=== PATIENT | female | born 1940 | race Caucasian/White ===

== ENCOUNTER 2017-02-06 09:42 | Emergency (ER) | payer MEDICARE, OTHER ==
--- NOTE | 2017-02-06 11:15 | ED Physician Documentation ---
History of Present Illness - Stated complaint Stated Complaint: LEG PX - Chief complaint Chief Complaint: Ext Problem - History obtained from History obtained from: Patient - History of Present Illness Timing: Other (Last weekend) Review of Systems Constitutional: denies: Fever Cardiac: denies: Chest pain / pressure, Palpitations, Pedal edema, Calf pain Respiratory: denies: Dyspnea, Cough, Wheezing GI: denies: Abdominal Pain, Nausea, Vomiting : denies: Dysuria, Frequency Skin: denies: Rash Musculoskeletal: reports: Joint pain (Posterior left ankle) Neurologic: denies: Focal weakness, Numbness PD PAST MEDICAL HISTORY - Past Medical History Past Medical History: Yes Cardiovascular: Hypertension, High cholesterol - Allergies Allergies/Adverse Reactions: Allergies Allergy/AdvReac Type Severity Reaction Status Date / Time No Known Drug Allergies Allergy Verified 02/06/17 09:52 - Social History Does the pt smoke?: No Smoking Status: Never smoker PD ED PE NORMAL - General General: Alert and oriented X 3 - HEENT HEENT: Moist mucous membranes - Cardiac Cardiac: RRR, No murmur - Respiratory Respiratory: No respiratory distress - Back Back: No CVA TTP - Derm Derm: Normal color, Warm and dry - Extremities Extremities: No deformity, No edema, No calf tenderness / cord. No: No tenderness to palpate (+ TTP left posterior ankle ) - Neuro Neuro: Alert and oriented X 3 Eye Opening: Spontaneous Motor: Obeys Commands Verbal: Oriented GCS Score: 15 PD ED PE EXPANDED - Extremities Extremities: Normal. No: Deformity, Limited ROM, Swelling, Red warm joint Results - Vitals Vitals: Vital Signs - 24 hr 02/06/17 09:52 Temperature 36.2 C L Heart Rate 71 Respiratory 16 Rate Blood Pressure 141/83 H O2 Saturation 100 Oxygen O2 Source Room air PD MEDICAL DECISION MAKING - ED course ED course: Pt with posterior ankle pain. No proximal fibula tenderness. Doubt fracture or septic joint. Will provide ROLANDA bandage. Gave RICE instructions. Departure - Departure Disposition: 01 Home, Self Care Clinical Impression: Tendonitis of ankle Condition: Good
[2017-02-06 11:21] VITALS: BP 154/91
== END 2017-02-06 11:24 | disposition home or self-care (01) ==
LOC: ED 09:42
DX: M77.9 Enthesopathy, unspecified (principal); I10 Essential (primary) hypertension; E78.00 Pure hypercholesterolemia, unspecified
CPT/HCPCS: 99282; 99283

== ENCOUNTER 2021-02-07 14:23 | Outpatient (CLI) | payer MEDICARE, OTHER ==
--- NOTE | 2021-02-07 16:12 | XRAY Report ---
PROCEDURE: Cervical Spine Complete INDICATIONS: NECK PAIN TECHNIQUE: 5 view(s) of the cervical spine were acquired. COMPARISON: None. FINDINGS: No definite acute fracture although suboptimal evaluation secondary to discogenic changes and diffuse osteopenia. Postsurgical effects related to osseous spinal fixation from the level of C3-T1. There i s also ACDF seen at the level of C7-T1. Hardware appears grossly intact. There is anterolisthesis of C2 on C3 measuring 2 mm on the flexion view which appears to reduce on extension view, in keeping wit h abnormal motion. Diffuse cervical spondylosis and facet disease. IMPRESSION: Findings suggest abnormal motion at C2-C3 as detailed above. This raises the possibility of instabili ty. Reviewed by: Rashaad Wilson MD on 02/07/2021 4:11 PM PST Approved by: Rashaad Wilson MD on 02/07/2021 4:11 PM PST Station ID: [id number]
== END 2021-02-07 14:24 | disposition home or self-care (01) ==
LOC: DI 14:23
DX: M47.812 Spondylosis without myelopathy or radiculopathy, cervical region (principal); M43.12 Spondylolisthesis, cervical region

== ENCOUNTER 2021-03-08 15:37 | Outpatient (CLI) | payer MEDICARE, OTHER ==
--- NOTE | 2021-03-08 17:26 | XRAY Report ---
PROCEDURE: Cervical Spine Complete INDICATIONS: CERVICAL VERTEBRAL FUSION TECHNIQUE: 5 view(s) of the cervical spine were acquired. COMPARISON: 02/07/2021.. FINDINGS: Bones: Postsurgical changes compatible with C3-T1 posterior fusion and C7-T1 ACDF as well as C4-C7 l aminectomies.. Orthopedic hardware is in expected position. Orthopedic hardware is intact. No fractur es or dislocations to the T1 level. The lateral masses of C1 appear intact on the odontoid view. No suspicious bony lesions. Severe degenerative disc changes noted from C3 through T1. There is severe ly limited range of motion in both the flexed and extended positions. There is trace, approximately 2 mm of C2 over C3 anterolisthesis and the flexed position which reduces to normal alignment in the ex tended position.. Soft tissues: No prevertebral soft tissue swelling. IMPRESSION: 1. Stable postsurgical changes. 2. Stable 2 mm C2-C3 anterolisthesis with cervical spine flexion. Reviewed by: Jen Thomas MD, PhD on 03/08/2021 5:24 PM PST Approved by: Jen Thomas MD, PhD on 03/08/2021 5:24 PM PST Station ID: [id number]
== END 2021-03-08 15:38 | disposition home or self-care (01) ==
LOC: DI 15:37
PROVIDERS: ATTEND Orthopaedic Surgery Orthopaedic Surgery of the Spine
DX: M43.22 Fusion of spine, cervical region (principal)

== ENCOUNTER 2021-03-14 12:52 | Outpatient (CLI) | payer MEDICARE, OTHER ==
--- NOTE | 2021-03-14 15:25 | XRAY Report ---
PROCEDURE: Lumbar Spine Complete INDICATIONS: BACK PAIN, LUMBOSACRAL TECHNIQUE: 5 views of the lumbar spine were acquired. COMPARISON: None. FINDINGS: Bones: 5 [id number] vertebrae are present. There is loss of normal lumbar lordosis. Multilevel disc space narrowing and endplate osteophyte formation. Facet hypertrophy throughout the lumbar spin e. Mild grade 1 retrolisthesis of L1 on L2 and L2 on L3. Mild chronic appearing wedging of L2. No helena tebral body compression fractures. No suspicious bony lesions. Soft tissues: Overlying bowel gas pattern is normal. No suspicious soft tissue calcifications. IMPRESSION: 1. Multilevel degenerative disc and facet disease. 2. No acute fracture. No osseous lesion. If symptoms and/or clinical suspicion for pathology continue , further assessment with repeat plain films, or advanced imaging (e.g., CT, MRI, or bone scan) is re commended for further assessment. Reviewed by: Merlyn Boyd MD on 03/14/2021 3:23 PM PST Approved by: Merlyn Boyd MD on 03/14/2021 3:23 PM PST Station ID: [id number]
== END 2021-03-14 12:53 | disposition home or self-care (01) ==
LOC: DI 12:52
PROVIDERS: ATTEND Orthopaedic Surgery Orthopaedic Surgery of the Spine
DX: M47.816 Spondylosis without myelopathy or radiculopathy, lumbar region (principal); M43.16 Spondylolisthesis, lumbar region; M51.36 Other intervertebral disc degeneration, lumbar region

== ENCOUNTER 2021-03-29 08:00 | Outpatient (CLI) | payer MEDICARE, OTHER ==
[2021-03-29 18:40] LABS: BASOPHILS % (AUTO) 0.7 %; EOSINOPHILS # (AUTO) 0.1 10^3/uL (0.0-0.7); EOSINOPHILS % (AUTO) 2.4 %; HCT - HEMATOCRIT 46.8 % (37.0-47.0); LYMPHOCYTES # (AUTO) 2.2 10^3/uL (1.5-3.5); LYMPHOCYTES % (AUTO) 36.6 %; MEAN CORPUSCULAR HEMOGLOBIN 29.6 pg (27.0-31.0); MEAN CORPUSCULAR HGB CONC 34.2 g/dL (32.0-36.0); MEAN CORPUSCULAR VOLUME 86.5 fL (81.0-99.0); MEAN PLATELET VOLUME 11.1 fL (7.9-10.8); MONOCYTES # (AUTO) 0.6 10^3/uL (0.0-1.0); MONOCYTES % (AUTO) 9.4 %; NEUTROPHILS % (AUTO) 50.7 %; PLT - PLATELET COUNT 210 10^3/uL (130-450); RED BLOOD COUNT 5.41 10^6/uL (4.20-5.40); RED CELL DISTRIBUTION WIDTH 12.5 % (12.0-15.0); WHITE BLOOD COUNT 5.9 x10^3/uL (4.8-10.8)
[2021-03-29 19:03] LABS: ALBUMIN 4.3 g/dL (3.2-5.5); ALBUMIN/GLOBULIN RATIO 1.5 (1.0-2.2); ALKALINE PHOSPHATASE 87 IU/L (42-121); ALT ALANINE AMINOTRANSFERASE 31 IU/L (10-60); AST ASPARTATE AMINOTRANSFERASE 31 IU/L (10-42); BILIRUBIN,TOTAL 0.5 mg/dL (0.2-1.0); BUN - BLOOD UREA NITROGEN 20 mg/dL (6-20); CALCIUM 9.4 mg/dL (8.5-10.3); CARBON DIOXIDE - CO2 30 mmol/L (21-32); CHLORIDE 97 mmol/L (101-111); CHOL/HDL RATIO 4.4 (<4.4); CHOLESTEROL 195 mg/dL; CREATININE 0.8 mg/dL (0.4-1.0); GFR - MDRD 69 (>89); GLUCOSE 109 mg/dL (70-100); HDL CHOLESTEROL 44 mg/dL; LDL CHOLESTEROL,CALCULATED 108 mg/dL; LDL/HDL RATIO 2.5 (<4.4); POTASSIUM 3.5 mmol/L (3.5-5.0); SODIUM 137 mmol/L (135-145); TOTAL PROTEIN 7.2 g/dL (6.7-8.2); TRIGLYCERIDES 216 mg/dL; VLDL CHOLESTEROL 43 mg/dL
== END 2021-03-29 23:59 ==
LOC: LAB.WCP 08:00
PROVIDERS: ATTEND Family Medicine
DX: E87.6 Hypokalemia (principal); I10 Essential (primary) hypertension; E78.5 Hyperlipidemia, unspecified
CPT/HCPCS: 36415; 80053; 80061; 83721; 85025